=== PATIENT | male | born 1985 | race African-American/Black ===

== ENCOUNTER 2018-01-27 18:59 | Emergency (ER) | payer OTHER ==
[2018-01-27] MEDS: LIDOCAINE 2% MDV 20 ML VIAL SC (22:00)
[2018-01-27] MEDS ORDERED: NORCO, ANEXSIA 5/325MG TABLET (HYDROcodone/ACETAMINOPHEN) As Ordered (23:09)
[2018-01-27] MEDS: NORCO, ANEXSIA 5/325MG TABLET (HYDROcodone/ACETAMINOPHEN) PO (23:16)
== END 2018-01-27 23:24 | disposition home or self-care (01) ==
LOC: M ED 18:59
DX: S61.211A Laceration without foreign body of left index finger without damage to nail, initial encounter (principal); W26.0XXA Contact with knife, initial encounter; Y92.099 Unspecified place in other non-institutional residence as the place of occurrence of the external cause; Y93.G3 Activity, cooking and baking; Y99.9 Unspecified external cause status
CPT/HCPCS: 12001

== ENCOUNTER → 2019-06-16 | Outpatient (CLI) | payer OTHER ==
[~2019-06-16] MED LIST: KEFL500C17 PO
== END ==
LOC: M OUTALCOH 07:55
PROVIDERS: ATTEND Psychiatry & Neurology Psychiatry
DX: F10.20 Alcohol dependence, uncomplicated (principal)

== ENCOUNTER 2019-06-30 16:00 | Outpatient (RCR) | payer OTHER | END 2019-07-04 | LOC: M OUTALCOH 16:00 | PROVIDERS: ATTEND Psychiatry & Neurology Psychiatry | DX: F10.20 Alcohol dependence, uncomplicated (principal) ==

== ENCOUNTER 2019-08-03 14:30 | Outpatient (RCR) | payer OTHER | END 2019-08-04 | LOC: M OUTALCOH 14:30 | PROVIDERS: ATTEND Psychiatry & Neurology Psychiatry | DX: F10.20 Alcohol dependence, uncomplicated (principal) ==

== ENCOUNTER 2019-10-01 11:52 | Emergency (ER) | payer OTHER ==
[~2019-10-01] VITALS: Ht 180.3 cm; Wt 87.7 kg
[2019-10-01] MEDS ORDERED: IBUPROFEN 600 MG TAB PO ONE (13:45)
[2019-10-01 14:03] LABS: HEMATOCRIT 51.4 % (42.0-52.0); HEMOGLOBIN 16.9 g/dl (13.5-17.5); MEAN CORPUSCULAR HEMOGLOBIN 27.3 pg (27.0-33.0); MEAN CORPUSCULAR HGB CONC 32.9 g/dl (32.0-36.5); MEAN CORPUSCULAR VOLUME 83.2 fl (80.0-96.0); PLATELET COUNT, AUTOMATED 203 10^3/uL (150-450); RED BLOOD COUNT 6.18 10^6/uL (4.30-6.10); WHITE BLOOD COUNT 4.3 10^3/uL (4.0-10.0)
[2019-10-01 14:43] LABS: ACETAMINOPHEN LEVEL < 2.0 UG/ML (10.0-30.0); ALBUMIN 4.3 GM/DL (3.2-5.2); ALT/SGPT 25 U/L (12-78); BILIRUBIN,DIRECT 0.1 MG/DL (0.0-0.2); BILIRUBIN,TOTAL 0.5 MG/DL (0.2-1.0); BLOOD UREA NITROGEN 10 MG/DL (7-18); CALCIUM LEVEL 9.5 MG/DL (8.5-10.1); CARBON DIOXIDE LEVEL 26 MEQ/L (21-32); CHLORIDE LEVEL 104 MEQ/L (98-107); CK-MB VALUE MASS 1.6 NG/ML (<3.6); CPK CREATINE PHOSPHOKINASE 414 U/L (39-308); ETHYL ALCOHOL (ETHANOL) 0.196 % (0.000-0.010); GLOMERULAR FILTRATION RATE > 60.0 (>60); GLUCOSE, FASTING 112 MG/DL (70-100); MB/CK RELATIVE INDEX 0.39 (< OR =4); SALICYLATE LEVEL < 1.7 MG/DL (5.0-30.0); SODIUM LEVEL 139 MEQ/L (136-145); TOTAL PROTEIN 8.8 GM/DL (6.4-8.2); TROPONIN I < 0.02 NG/ML (< 0.10)
[2019-10-01] MEDS ORDERED: LORazepam 1 MG TAB PO ONE (14:45)
[2019-10-01 15:23] LABS: AMPHETAMINES LEVEL URINE NEGATIVE (NEGATIVE); BARBITURATES URINE NEGATIVE (NEGATIVE); BENZODIAZEPINES URINE NEGATIVE (NEGATIVE); CANNABINOIDS URINE NEGATIVE (NEGATIVE); COCAINE METABOLITE URINE NEGATIVE (NEGATIVE); METHADONE URINE NEGATIVE (NEGATIVE); OPIATES URINE NEGATIVE (NEGATIVE); PHENCYCLIDINE URINE NEGATIVE (NEGATIVE)
[2019-10-01] MEDS ORDERED: NAPROXEN 250 MG TAB PO ONE (20:15)
[2019-10-01] MEDS ORDERED: hydrOXYzine 25 MG TAB PO ONE (23:00)
[2019-10-02] MEDS ORDERED: IBUPROFEN 400 MG TAB As Ordered ONE (12:22)
[2019-10-02] MEDS ORDERED: IBUPROFEN 400 MG TAB PO ONE (12:30)
[2019-10-02 14:05] VITALS: BP 140/86
--- NOTE | 2019-10-02 15:30 | ECGEPIP ---
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
== END 2019-10-02 14:09 | disposition short-term general hospital (02) ==
LOC: M ED 11:52
DX: F10.10 Alcohol abuse, uncomplicated (principal); R45.851 Suicidal ideations; F32.9 Major depressive disorder, single episode, unspecified
CPT/HCPCS: 80048; 80076; 80307; 82550; 82553; 84443; 84484; 85027; 93005; 99285; G0480

== ENCOUNTER 2020-01-12 10:17 | Inpatient (IN) | payer OTHER ==
[~2020-01-12] VITALS: Ht 180.3 cm; Wt 84.5 kg
[~2020-01-12 10:17] MED LIST changes: +ACET1TAB55 PO; +FOLIC ACID 1 MG TAB PO SCH; +MINI1CAP PO; +MULTIVITAMINS/MINERALS THERAP 1 TAB PO SCH; +NALT50TA4 PO; +NICO21PAT TD; +THIAMINE 100 MG TAB PO SCH; +VENL150C43 PO
[2020-01-12 11:24] LABS: HEMATOCRIT 47.6 % (42.0-52.0); HEMOGLOBIN 15.9 g/dl (13.5-17.5); MEAN CORPUSCULAR HEMOGLOBIN 27.7 pg (27.0-33.0); MEAN CORPUSCULAR HGB CONC 33.4 g/dl (32.0-36.5); MEAN CORPUSCULAR VOLUME 82.9 fl (80.0-96.0); PLATELET COUNT, AUTOMATED 200 10^3/uL (150-450); RED BLOOD COUNT 5.74 10^6/uL (4.30-6.10); WHITE BLOOD COUNT 3.3 10^3/uL (4.0-10.0)
[2020-01-12] MEDS ORDERED: KETOROLAC 60 MG/2 ML VIAL (J1885) IM ONE (11:45)
[2020-01-12 12:04] LABS: ACETAMINOPHEN LEVEL < 2.0 UG/ML (10.0-30.0); ALBUMIN 4.2 GM/DL (3.2-5.2); ALT/SGPT 24 U/L (12-78); BILIRUBIN,DIRECT 0.2 MG/DL (0.0-0.2); BILIRUBIN,TOTAL 0.4 MG/DL (0.2-1.0); BLOOD UREA NITROGEN 16 MG/DL (7-18); CALCIUM LEVEL 8.9 MG/DL (8.5-10.1); CARBON DIOXIDE LEVEL 28 MEQ/L (21-32); CHLORIDE LEVEL 105 MEQ/L (98-107); CREATININE FOR GFR 1.21 MG/DL (0.70-1.30); ETHYL ALCOHOL (ETHANOL) 0.173 % (0.000-0.010); GLOMERULAR FILTRATION RATE > 60.0 (>60); GLUCOSE, FASTING 91 MG/DL (70-100); SALICYLATE LEVEL < 1.7 MG/DL (5.0-30.0); SODIUM LEVEL 141 MEQ/L (136-145); TOTAL PROTEIN 8.4 GM/DL (6.4-8.2)
[2020-01-12] MEDS ORDERED: LORazepam 2 MG TAB PO PRN ×2 (13:15→16:45)
[2020-01-12 13:18] LABS: AMPHETAMINES LEVEL URINE NEGATIVE (NEGATIVE); BARBITURATES URINE NEGATIVE (NEGATIVE); BENZODIAZEPINES URINE NEGATIVE (NEGATIVE); CANNABINOIDS URINE NEGATIVE (NEGATIVE); COCAINE METABOLITE URINE NEGATIVE (NEGATIVE); METHADONE URINE NEGATIVE (NEGATIVE); OPIATES URINE NEGATIVE (NEGATIVE); PHENCYCLIDINE URINE NEGATIVE (NEGATIVE)
[2020-01-12] MEDS ORDERED: MAALOX 30 ML SUSP *UDC PO PRN (16:45)
[2020-01-12] MEDS ORDERED: MOM 30ML SUSPENSION UDC PO PRN (16:45)
[2020-01-12] MEDS ORDERED: ACETAMINOPHEN TAB 650MG DOSE (2X325MG) PO PRN (16:45)
[2020-01-12 17:58] VITALS: BP 161/96
[2020-01-12 17:59] VITALS: BP 161/96
[2020-01-12] MEDS: THIAMINE 100 MG TAB PO SCH (18:45)
[2020-01-12] MEDS ORDERED: LORazepam 1 MG TAB PO ONE (18:45)
[2020-01-12 20:02] VITALS: BP 152/80
[2020-01-12] MEDS: traZODone 50 MG TAB PO PRN (21:36)
[2020-01-13 02:00] VITALS: BP 122/86
[2020-01-13 06:36] VITALS: BP 124/88
[2020-01-13] MEDS: THIAMINE 100 MG TAB PO SCH ×2 (08:51→21:11)
[2020-01-13] MEDS ORDERED: MULTIVITAMINS/MINERALS THERAP 1 TAB PO SCH (09:00)
[2020-01-13] MEDS ORDERED: PROPRANOLOL 10 MG TAB PO PRN (09:00)
[2020-01-13] MEDS ORDERED: FOLIC ACID 1 MG TAB PO SCH (09:00)
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
[2020-01-13 09:40] VITALS: BP 124/88
[2020-01-13] MEDS ORDERED: DISU250T PO (10:02)
--- NOTE | 2020-01-13 11:54 | HPEPDOC ---
General Date of Admission Jan 12, 2020 at 17:18 Date of Service: Jan 13, 2020 Chief Complaint The patient is a 34-year-old male Who presented to the ER with suicidal ideation History of Present Illness Patients 34-year-old male with a past medical history of depression and chronic headaches who presented to the emergency room after reporting suicidal ideation. Patient was admitted to the inpatient mental health unit under the care of psychiatry. Hospitalist service was consultation for medical screening evaluation. Patient reports a mild headache. He denies any nausea, vomiting, chest pain, shortness breath, palpitations, abdominal pain, but patient, diarrhea, or urinary discomfort. She denies any recent fevers or chills. Patient notes that his appetite is fairly normal. Is unaware of any change in his weight. Home Medications Scheduled Disulfiram (Disulfiram) 250 Mg Tablet, 1 TAB PO DAILY for alcohol Allergies Coded Allergies: No Known Allergies (Unverified , 01/27/18) Past Medical History Medical History Depression Chronic headaches Chronic lower back pain Surgical History Molar tooth extraction Family History - Mother with no known past medical history - Father with a history of high blood pressure and lung issues Social History - Denies the use of tobacco or illicit drugs; she reports that he drinks alcohol socially - Denies recent travel or sick contacts - Lives with roommate - Occupation; unemployed Review of Systems Other systems 10 point review of systems complete, all negative otherwise stated in HPI Vital Signs - Vitals: BP 124/88, HR 69, RR 16, Sat 99%RA, Temp 98.F - General: Lying in bed, No acute distress, Speaking in full sentences, AAOx3 - HEENT: NC, AT, PERRLA, EOMI - CVS: RRR, +S1S2 - Lungs: Fair air entry bilaterally, No appreciable wheezing / rales / rhonchi - Abdomen: Soft, Non-distended, Non-tender - Extremities: No lower extremity edema, No calf tenderness - Neuro: No focal motor or sensory deficit - Skin: No visible rashes Plan / VTE VTE Prophylaxis Ordered?: Yes Plan Plan Suicidal ideation - Patient has a history of depression and prior admissions for suicide ideation - Patient is been admitted to the inpatient mental health unit under the care of psychiatry - This is currently being managed by psychiatry Chronic headaches - Continue with Tylenol when necessary Chronic lower back pain - Continue with Tylenol when necessary DVT prophylaxis - Will continue with early ambulation Thank you for this consultation; please reconsult as needed YOBANY CHAHLA MD Jan 13, 2020 11:54
[2020-01-13 16:00] VITALS: BP 162/86
[2020-01-13 20:46] VITALS: BP 130/84
[2020-01-13] MEDS: traZODone 50 MG TAB PO PRN (21:40)
[2020-01-14 06:19] VITALS: BP 125/73
--- NOTE | 2020-01-14 11:50 | MHDSPDOC ---
[facility] Discharge Summary Discharge Summary DATE OF ADMISSION: Jan 12, 2020 at 17:18 DATE OF DISCHARGE: Jan 14, 2020 at 07:03 Discharge Duong Hartman MRN: N/A Date of : N/A Date of Service: 01/14/2020 Diagnoses PTSD, chronic. Alcohol use disorder, severe. History of Present Illness The patient, a well-known 34-year-old man, presents after reportedly stating to the [facility] that he had suicidal thoughts, he was quite intoxicated at the time and was brought in and admitted out of an abundance of caution. When the patient was met with he stated that he had recently left the and had been doing better. He reports that he had been drinking and had been "very honest" with the screening nurse at the [facility]. He reported that his depression and anxiety were doing well and had no major changes from how he had been discharged previously. Psychosocial information is extracted from my previous assessment and updated as appropriate. Consultants Involved Hospitalist/PCP screening Treatment and Progress On The Unit Patient was admitted to the inpatient mental health unit and started on his home medications. He reported that alcohol had been a major part of his presentation. He was observed for 48 hours where he attended treatment and was friendly and amenable denying any suicidal or homicidal ideation. He had no behavioral problems and did well on the unit. He requested discharge shortly after presenting. Discharge Assessment 34-year-old man with a history of PTSD and significant alcohol problems presents after likely becoming intoxicated making statements to a [facility] nurse where he is brought in and admitted out of an abundance of caution. He does well with the CIWA, but doesn't score significantly high, patient is provided alcohol use treatment and discussed the risks, benefits, and potential side effects of disulfiram. Encouraged to consider using it. The patient at the time of discharge did not meet criteria for involuntary admission/extension due to having a normal mental status exam, fair insight into the situation, They are engaged in the discharge process, as well as being friendly and amenable in behavioral control and havent been engaging in any observed concerning behavior or ideation recently. They decline voluntary extension/admission at this time and must be discharged in good cyn, as Im unable to make a case for holding the patient against their will. They may have historical risk factors of admissions and other interactions with psychiatry however, those are not modifiable from a clinical perspective. The patient will need to be discharged in good cyn. Mental Status Examination Unable to do mental status as patient was discharged [employer] in order to attend to job duties, reviewed chart, patient had been denying any suicidal or homicidal ideation which is critical to whether he would be discharged or not. Please refer to my previous mental status exam in H&P. Follow Up The social work team worked during the predischarge meeting in order to evaluate for further issues of lethality address them fully before discharge. They worked on safety planning with the patient's family members in order to ensure that the patient will have a safe and effective discharge. Time Spent The amount of time spent in the coordination of care for this patient was approximately 45 minutes. Thursday Vital Signs/I&Os Vital Signs Date Time Temp Pulse Resp B/P (MAP) Pulse Ox O2 Delivery O2 Flow Rate FiO2 01/14/20 06:19 97.8 96 18 125/73 (90) 97 Room Air Medications Scheduled Disulfiram (Disulfiram) 250 Mg Tablet, 1 TAB PO DAILY for alcohol for 7 Days, #7 Allergies Coded Allergies: No Known Allergies (Unverified , 01/27/18) ZACKARY ROSARIO DO Jan 14, 2020 11:50
== END 2020-01-14 07:03 | disposition home or self-care (01) | DRG 882 ==
LOC: M ED 10:17 → M PSY 17:18
PROVIDERS: ADMIT Psychiatry & Neurology Addiction Medicine; ATTEND Psychiatry & Neurology Addiction Medicine
DX: F43.10 Post-traumatic stress disorder, unspecified (principal); R45.851 Suicidal ideations; F10.10 Alcohol abuse, uncomplicated; Z79.899 Other long term (current) drug therapy; R51 Headache; M54.5 Low back pain

== ENCOUNTER 2020-01-20 08:22 | Emergency (ER) | payer OTHER ==
[~2020-01-20 08:22] MED LIST changes: +DISU250T PO; -FOLIC ACID 1 MG TAB PO SCH; -MULTIVITAMINS/MINERALS THERAP 1 TAB PO SCH; -THIAMINE 100 MG TAB PO SCH
[2020-01-20] MEDS ORDERED: NS 1,000 ML IV SCH (08:29)
[2020-01-20] MEDS ORDERED: PROP40TA62 PO (08:52)
[2020-01-20] MEDS ORDERED: FLUO20CA22 PO (08:52)
[2020-01-20 09:10] LABS: ABG BASE EXCESS -6.8 (-2.0-2.0); ABG HCO3 17.7 MEQ/L (22.0-26.0); ABG PARTIAL PRESSURE CO2 33.5 mmHg (35.0-45.0); ABG PARTIAL PRESSURE O2 144.1 mmHg (75.0-100.0); ABG STANDARD HCO3 19.1 MEQ/L (22.0-26.0); ABG TOTAL CO2 18.8 MEQ/L (22.0-29.0); ABG pH (ARTERIAL) 7.342 UNITS (7.350-7.450)
[2020-01-20 09:13] LABS: BASO % 0.2 % (0.0-1.0); HEMATOCRIT 54.4 % (42.0-52.0); HEMOGLOBIN 18.2 g/dl (13.5-17.5); LYMPH # 0.6 10^3/uL (1.5-5.0); LYMPH % 5.2 % (24.0-44.0); MEAN CORPUSCULAR HGB CONC 33.5 g/dl (32.0-36.5); MEAN CORPUSCULAR VOLUME 83.6 fl (80.0-96.0); MONO # 0.5 10^3/uL (0.0-0.8); MONO % 4.8 % (0.0-5.0); NEUTROPHILS # 9.8 10^3/uL (1.5-8.5); NEUTROPHILS % 89.4 % (36.0-66.0); PLATELET COUNT, AUTOMATED 190 10^3/uL (150-450); RED BLOOD COUNT 6.51 10^6/uL (4.30-6.10); WHITE BLOOD COUNT 10.9 10^3/uL (4.0-10.0)
[2020-01-20 09:31] LABS: AMPHETAMINES LEVEL URINE NEGATIVE (NEGATIVE); BARBITURATES URINE NEGATIVE (NEGATIVE); BENZODIAZEPINES URINE POSITIVE (NEGATIVE); CANNABINOIDS URINE NEGATIVE (NEGATIVE); COCAINE METABOLITE URINE NEGATIVE (NEGATIVE); METHADONE URINE NEGATIVE (NEGATIVE); OPIATES URINE NEGATIVE (NEGATIVE); PHENCYCLIDINE URINE NEGATIVE (NEGATIVE)
[2020-01-20 09:54] LABS: ALT/SGPT 25 U/L (12-78); BLOOD UREA NITROGEN 14 MG/DL (7-18); CALCIUM LEVEL 8.5 MG/DL (8.5-10.1); CARBON DIOXIDE LEVEL 26 MEQ/L (21-32); CHLORIDE LEVEL 104 MEQ/L (98-107); CPK CREATINE PHOSPHOKINASE 217 U/L (39-308); CREATININE FOR GFR 1.41 MG/DL (0.70-1.30); GLOMERULAR FILTRATION RATE > 60.0 (>60); GLUCOSE, FASTING 105 MG/DL (70-100); POTASSIUM SERUM 4.1 MEQ/L (3.5-5.1); SODIUM LEVEL 141 MEQ/L (136-145)
[2020-01-20 09:55] LABS: ACETAMINOPHEN LEVEL < 2.0 UG/ML (10.0-30.0); ALBUMIN 4.1 GM/DL (3.2-5.2); BILIRUBIN,DIRECT 0.2 MG/DL (0.0-0.2); BILIRUBIN,TOTAL 0.5 MG/DL (0.2-1.0); CK-MB VALUE MASS < 1.0 NG/ML (<3.6); CPK CREATINE PHOSPHOKINASE 209 U/L (39-308); ETHYL ALCOHOL (ETHANOL) 0.297 % (0.000-0.010); MB/CK RELATIVE INDEX 0.48 (< OR =4); SALICYLATE LEVEL < 1.7 MG/DL (5.0-30.0); TOTAL PROTEIN 8.7 GM/DL (6.4-8.2)
[2020-01-20 10:29] LABS: TROPONIN I < 0.02 NG/ML (< 0.10)
--- NOTE | 2020-01-20 10:32 | REP ---
REASON FOR EXAM: Overdose. PRIORS: None. TECHNIQUE: 4.5 mm contiguous transaxial sections were obtained from the skull base to the cerebral convexities with thin cuts through the posterior fossa without the administration of intravenous contrast. FINDINGS: The ventricles and sulci are consistent with the patient's age. There are no extra-axial fluid collections. There is no mass effect. The deep cerebral white matter is consistent with the patient's age. The orbital and petrous structures , cerebellopontine angles, and posterior fossa are unremarkable. The sella turcica, cavernous, and paracavernous structures are essentially unremarkable. The visualized portions of the paranasal sinuses and mastoid air cells are clear. Images of the skull base show no gross abnormality. IMPRESSION: Essentially unremarkable CT examination of the brain. Electronically Signed by Kayode Mclaughlin DO 01/20/2020 10:33 A
--- NOTE | 2020-01-20 10:33 | REP ---
REASON: Drug overdose. FINDINGS: The technique utilized in obtaining the radiograph has magnified the cardiac silhouette and accentuated the interstitial markings. The superior mediastinal structures are midline. The cardiac silhouette magnified by technique as are the superior mediastinal structures. The diaphragmatic surfaces of the lungs are regular, and the costophrenic angles are clear. The pulmonary hardin are clear. The imaged osseous structures are intact. IMPRESSION: There is no acute cardiopulmonary disease. Electronically Signed by Kayode Mclaughlin DO 01/20/2020 10:34 A
[2020-01-20] MEDS ORDERED: NS 1,000 ML IV ONE (14:00)
[2020-01-20 16:15] VITALS: BP 130/62
--- NOTE | 2020-01-21 00:51 | ECGEPIP ---
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
== END 2020-01-20 16:31 | disposition home or self-care (01) ==
LOC: EDBD 08:22 → M ED 08:22
DX: F10.129 Alcohol abuse with intoxication, unspecified (principal); R00.0 Tachycardia, unspecified; F32.9 Major depressive disorder, single episode, unspecified; R51 Headache; Z79.899 Other long term (current) drug therapy
CPT/HCPCS: 70450; 71045; 80048; 80076; 80307; 82550; 82553; 82803; 84443; 84484; 85025; 93005; 93041; 96360; 96361; 99285; G0480

== ENCOUNTER 2020-07-07 14:17 | Emergency (ER) | payer OTHER ==
[~2020-07-07 14:17] MED LIST changes: +FLUO20CA22 PO; +PROP40TA62 PO
[2020-07-07 16:06] LABS: HEMOGLOBIN 15.4 g/dl (13.5-17.5); MEAN CORPUSCULAR HEMOGLOBIN 28.2 pg (27.0-33.0); MEAN CORPUSCULAR HGB CONC 33.5 g/dl (32.0-36.5); MEAN CORPUSCULAR VOLUME 84.2 fl (80.0-96.0); PLATELET COUNT, AUTOMATED 199 10^3/uL (150-450); RED BLOOD COUNT 5.46 10^6/uL (4.30-6.10); WHITE BLOOD COUNT 3.1 10^3/uL (4.0-10.0)
[2020-07-07 16:23] LABS: AMPHETAMINES LEVEL URINE NEGATIVE (NEGATIVE); BARBITURATES URINE NEGATIVE (NEGATIVE); BENZODIAZEPINES URINE NEGATIVE (NEGATIVE); CANNABINOIDS URINE NEGATIVE (NEGATIVE); COCAINE METABOLITE URINE NEGATIVE (NEGATIVE); METHADONE URINE NEGATIVE (NEGATIVE); OPIATES URINE NEGATIVE (NEGATIVE); PHENCYCLIDINE URINE NEGATIVE (NEGATIVE)
[2020-07-07 16:50] LABS: ACETAMINOPHEN LEVEL < 2.0 UG/ML (10.0-30.0); ALT/SGPT 42 U/L (12-78); BILIRUBIN,DIRECT 0.2 MG/DL (0.0-0.2); BILIRUBIN,TOTAL 0.5 MG/DL (0.2-1.0); BLOOD UREA NITROGEN 10 MG/DL (7-18); CARBON DIOXIDE LEVEL 26 MEQ/L (21-32); CHLORIDE LEVEL 103 MEQ/L (98-107); CREATININE FOR GFR 1.16 MG/DL (0.70-1.30); ETHYL ALCOHOL (ETHANOL) 0.309 % (0.000-0.010); GLOMERULAR FILTRATION RATE > 60.0 (>60); GLUCOSE, FASTING 76 MG/DL (70-100); POTASSIUM SERUM 3.9 MEQ/L (3.5-5.1); SALICYLATE LEVEL < 1.7 MG/DL (5.0-30.0); SODIUM LEVEL 140 MEQ/L (136-145); THYROID STIMULATING HORMONE 0.982 uIU/ML (0.358-3.740); TOTAL PROTEIN 8.1 GM/DL (6.4-8.2)
[2020-07-07] MEDS ORDERED: OXAZEPAM 15 MG CAP PO ONE (17:00)
[2020-07-07] MEDS ORDERED: HALOPERIDOL 5MG/ML VIAL (J1630 PER 1) As Ordered ONE (17:10)
[2020-07-07] MEDS ORDERED: diphenhydrAMINE 50MG/ML VIAL (J1200) As Ordered ONE (17:11)
[2020-07-07] MEDS ORDERED: LORazepam 2 MG/ML VIAL As Ordered ONE (17:11)
[2020-07-07] MEDS ORDERED: HALOPERIDOL 5MG/ML VIAL (J1630 PER 1) IM ONE (17:15)
[2020-07-07] MEDS ORDERED: LORazepam 2 MG/ML VIAL IM ONE (17:15)
[2020-07-07] MEDS ORDERED: diphenhydrAMINE 50MG/ML VIAL (J1200) IM ONE (17:15)
[2020-07-07] MEDS ORDERED: LORazepam 2 MG TAB PO PRN (20:45)
[2020-07-07] MEDS ORDERED: THIAMINE 100 MG TAB PO SCH (21:00)
[2020-07-07] MEDS ORDERED: CYCL-707 PO (21:01)
[2020-07-07] MEDS ORDERED: TRAZ-257 PO (21:01)
[2020-07-07] MEDS ORDERED: VITA200010 PO (21:01)
[2020-07-07] MEDS ORDERED: SERT-138 PO (21:01)
[2020-07-07] MEDS ORDERED: MELO15TA28 PO (21:01)
[2020-07-07] MEDS ORDERED: NALT50TA4 PO (21:01)
[2020-07-07] MEDS ORDERED: MED REC COMMENT (21:04)
[2020-07-08 08:21] VITALS: BP 168/73
[2020-07-08] MEDS ORDERED: FOLIC ACID 1 MG TAB PO SCH (09:00)
[2020-07-08] MEDS ORDERED: MULTIVITAMINS/MINERALS THERAP 1 TAB PO SCH (09:00)
== END 2020-07-08 08:24 | disposition home or self-care (01) ==
LOC: M ED 14:17
DX: F32.9 Major depressive disorder, single episode, unspecified (principal); F10.129 Alcohol abuse with intoxication, unspecified; F43.10 Post-traumatic stress disorder, unspecified; Z79.899 Other long term (current) drug therapy
CPT/HCPCS: 80048; 80076; 80307; 84443; 85027; 96372; 99285; G0480; J1200; J1630; J2060

== ENCOUNTER 2021-05-15 22:02 | Emergency (ER) | payer OTHER ==
[~2021-05-15] VITALS: Ht 177.8 cm; Wt 90.1 kg
[~2021-05-15 22:02] MED LIST changes: +CYCL-707 PO; +MED REC COMMENT; +MELO15TA28 PO; +SERT-138 PO; +TRAZ-257 PO; +VITA200010 PO
[2021-05-15] MEDS ORDERED: NS 1,000 ML IV ONE (22:10)
[2021-05-15] MEDS ORDERED: CHARCOAL ACTIVATED LIQUID 25 GM/120 ML BTL PO ONE (22:15)
[2021-05-15] MEDS ORDERED: LORazepam 2 MG/ML VIAL IV STA (22:16)
[2021-05-15] MEDS ORDERED: LORazepam 2 MG/ML VIAL As Ordered ONE (22:20)
[2021-05-15 22:29] LABS: RED BLOOD COUNT 5.11 10^6/uL (4.30-6.10)
[2021-05-15 22:30] LABS: BASO # 0.1 10^3/uL (0.0-0.2); BASO % 0.9 % (0.0-1.0); EOS # 0.1 10^3/uL (0.0-0.5); EOS % 0.8 % (0.0-3.0); HEMATOCRIT 42.5 % (42.0-52.0); HEMOGLOBIN 14.2 g/dl (13.5-17.5); LYMPH # 5.1 10^3/uL (1.5-5.0); LYMPH % 79.1 % (24.0-44.0); MEAN CORPUSCULAR HEMOGLOBIN 27.8 pg (27.0-33.0); MEAN CORPUSCULAR HGB CONC 33.4 g/dl (32.0-36.5); MEAN CORPUSCULAR VOLUME 83.2 fl (80.0-96.0); MONO # 0.3 10^3/uL (0.0-0.8); MONO % 4.3 % (2.0-8.0); NEUTROPHILS % 14.9 % (36.0-66.0); PLATELET COUNT, AUTOMATED 220 10^3/uL (150-450)
[2021-05-15 22:51] LABS: WHITE BLOOD COUNT 6.5 10^3/uL (4.0-10.0)
[2021-05-15 23:12] LABS: ACETAMINOPHEN LEVEL < 2.0 UG/ML (10.0-30.0); ALBUMIN 3.7 GM/DL (3.2-5.2); ALT/SGPT 18 U/L (12-78); BILIRUBIN,DIRECT 0.1 MG/DL (0.0-0.2); BILIRUBIN,TOTAL 0.3 MG/DL (0.2-1.0); BLOOD UREA NITROGEN 9 MG/DL (7-18); CALCIUM LEVEL 8.3 MG/DL (8.5-10.1); CARBON DIOXIDE LEVEL 30 MEQ/L (21-32); CHLORIDE LEVEL 105 MEQ/L (98-107); CPK CREATINE PHOSPHOKINASE 189 U/L (39-308); CREATININE FOR GFR 1.42 MG/DL (0.70-1.30); ETHYL ALCOHOL (ETHANOL) 0.379 % (0.000-0.010); GLOMERULAR FILTRATION RATE 59.7 (>60); GLUCOSE, FASTING 129 MG/DL (70-100); POTASSIUM SERUM 3.8 MEQ/L (3.5-5.1); SALICYLATE LEVEL 1.7 MG/DL (5.0-30.0); SODIUM LEVEL 144 MEQ/L (136-145); TOTAL PROTEIN 7.7 GM/DL (6.4-8.2)
[2021-05-16 00:23] LABS: AMPHETAMINES LEVEL URINE NEGATIVE (NEGATIVE); BARBITURATES URINE NEGATIVE (NEGATIVE); BENZODIAZEPINES URINE NEGATIVE (NEGATIVE); CANNABINOIDS URINE NEGATIVE (NEGATIVE); COCAINE METABOLITE URINE NEGATIVE (NEGATIVE); METHADONE URINE NEGATIVE (NEGATIVE); OPIATES URINE NEGATIVE (NEGATIVE); PHENCYCLIDINE URINE NEGATIVE (NEGATIVE)
[2021-05-16] MEDS ORDERED: LORazepam 2 MG/ML VIAL IV STA (01:57)
[2021-05-16] MEDS ORDERED: LORazepam 2 MG/ML VIAL As Ordered ONE (02:00)
--- NOTE | 2021-05-16 02:42 | REPVR ---
PROCEDURE INFORMATION: Exam: CT Head Without Contrast Exam date and time: 05/15/2021 11:05 PM Age: 35 years old Clinical indication: Injury or trauma; Fall; Concussion/head injury TECHNIQUE: Imaging protocol: Computed tomography of the head without contrast. Radiation optimization: All CT scans at this facility use at least one of these dose optimization techniques: automated exposure control; mA and/or kV adjustment per patient size (includes targeted exams where dose is matched to clinical indication); or iterative reconstruction. COMPARISON: No relevant prior studies available. FINDINGS: Brain: Normal. No hemorrhage. Unremarkable white matter. No mass effect. Cerebral ventricles: No ventriculomegaly. Paranasal sinuses: Visualized sinuses are unremarkable. No fluid levels. Mastoid air cells: Visualized mastoid air cells are well aerated. Bones/joints: Unremarkable. No acute fracture. Soft tissues: Unremarkable. IMPRESSION: No acute intracranial abnormality. Electronically signed by: Krzysztof Ruiz On 05/16/2021 02:41:42 AM
--- NOTE | 2021-05-16 02:43 | REPVR ---
PROCEDURE INFORMATION: Exam: CT Cervical Spine Without Contrast Exam date and time: 05/15/2021 11:05 PM Age: 35 years old Clinical indication: Neck pain; Additional info: Trauma TECHNIQUE: Imaging protocol: Computed tomography images of the cervical spine without contrast. Radiation optimization: All CT scans at this facility use at least one of these dose optimization techniques: automated exposure control; mA and/or kV adjustment per patient size (includes targeted exams where dose is matched to clinical indication); or iterative reconstruction. COMPARISON: No relevant prior studies available. FINDINGS: Bones/joints: Normal spinal curvature, vertebral body heights, and alignment. No spinal fracture or acute subluxation. Discs/Spinal canal/Neural foramina: No significant disc protrusion. No severe spinal canal stenosis. No significant neural foraminal narrowing. Lungs: Lung apices are normal. Soft tissues: Unremarkable. IMPRESSION: No acute vertebral fracture/subluxation. Electronically signed by: Kzrysztof Ruiz On 05/16/2021 02:42:49 AM
--- NOTE | 2021-05-16 06:48 | ECGEPIP ---
[facility] - ED Test Date: 2021-05-15 Pat Name: IRMA STEIN Department: Room: - Gender: Male Education Program Associate: NIKKI MAYA : 1985 Requested By: JAIME Aleman Order Number: [id number] Reading MD: Alpesh Garcia Measurements Intervals [place] Rate: 108 P: 61 [place]: 188 QRS: 82 QRSD: 82 T: 43 QT: 340 QTc: 455 Interpretive Statements Sinus tachycardia NO PRIORS FOR COMPARISON Electronically Signed on 05-16-2021 6:48:21 EDT by Alpesh Garcia
[2021-05-16 16:19] LABS: RSV AMPLIFICATION NEGATIVE (NEGATIVE)
[2021-05-16] MEDS ORDERED: ACETAMINOPHEN TAB 650MG DOSE (2X325MG) PO ONE (19:45)
[2021-05-16 22:50] VITALS: BP 136/81
== END 2021-05-16 22:53 ==
LOC: MERGE 22:02 → EDBD 22:02 → M ED 22:02
DX: T14.91XA Suicide attempt, initial encounter (principal); R00.0 Tachycardia, unspecified; Y92.9 Unspecified place or not applicable; Y93.9 Activity, unspecified; Z79.899 Other long term (current) drug therapy
CPT/HCPCS: 36415; 70450; 72125; 80048; 80076; 80143; 80307; 82077; 82550; 84443; 85025; 87631; 93005; 93041; 94760; 99285; J2060